=== PATIENT | female | born 1975 | race Caucasian/White ===

== ENCOUNTER 2016-11-27 07:13 | Day surgery (SDC) | payer OTHER ==
[~2016-11-27 07:13] MED LIST: ALEVE220 M4 PO; IBUPROFEN200 M2 PO
[2016-11-27] MEDS ORDERED: PERCOCET 5-3251 EACH PO (16:06)
== END 2016-11-28 10:00 ==
LOC: SRG 07:13 → SHSC 07:15 → ORW 09:00 → PACU 10:15 → OBGF 11:35
PROC: 0UT94ZZ Resection of Uterus, Percutaneous Endoscopic Approach (ICD-10-PCS; principal; 2016-11-27)
PROC: 0UTC4ZZ Resection of Cervix, Percutaneous Endoscopic Approach (ICD-10-PCS; 2016-11-27)
PROC: 0UT74ZZ Resection of Bilateral Fallopian Tubes, Percutaneous Endoscopic Approach (ICD-10-PCS; 2016-11-27)
PROC: 8E0W4CZ Robotic Assisted Procedure of Trunk Region, Percutaneous Endoscopic Approach (ICD-10-PCS; 2016-11-27)
DX: D25.1 Intramural leiomyoma of uterus (principal); N72 Inflammatory disease of cervix uteri; N83.8 Other noninflammatory disorders of ovary, fallopian tube and broad ligament; Z90.49 Acquired absence of other specified parts of digestive tract; Z98.890 Other specified postprocedural states
CPT/HCPCS: J0690; J1170; J2175; J2250; J7030